=== PATIENT | female | born 1985 | race Caucasian/White ===

== ENCOUNTER 2018-02-08 21:36 | Emergency (ER) | payer MEDICAID ==
[2018-02-08 21:44] VITALS: BP 111/74
[2018-02-08] MEDS ORDERED: Polymyx/Trimethoprim OPTH* 10 ML BTL ONE (22:48)
--- NOTE | 2018-02-08 22:56 | ED ---
Throat Pain/Nasal Congestion - HPI Summary HPI Summary: Patient is a 32-year-old female from [place] presenting to the ED with a complaint of left eye erythema and injection 2 days. She was seen at [address] [place] [id number] urgent care and was diagnosed with conjunctivitis, vertigo and back spasms. She is concerned that she is going call side. She states when she looks millimeter her left eye is cross side medially and she has double vision. She also endorses some dizziness with this. She began taking Prozac and Seroquel 2 days ago and discontinued her trazodone medication. She states she has been sick recently with an upper respiratory infection. Denies any other symptoms or concerns. Denies any other medications. Denies fevers, sweats, chills. Vital signs stable on arrival. - History of Current Complaint Chief Complaint: EDEyeProblem Time Seen by Provider: 02/08/18 22:08 Hx Obtained From: Patient Onset/Duration: Gradual Onset Severity: Moderate Associated Signs And Symptoms: Positive: Negative - Epiglottits Risk Factors Epiglottis Risk Factors: Negative - Allergies/Home Medications Allergies/Adverse Reactions: Allergies Allergy/AdvReac Type Severity Reaction Status Date / Time No Known Allergies Allergy Verified 02/08/18 21:42 Home Medications: Home Medications NK [No Home Medications Reported] 02/08/18 [History Confirmed 02/08/18] PMH/Surg Hx/FS Hx/Imm Hx Previously Healthy: Yes - Immunization History Hx Pertussis Vaccination: No Immunizations Up to Date: Unable to Obtain/Confirm Infectious Disease History: No Infectious Disease History: Denies: Traveled Outside the [place] in Last 30 Days - Social History Occupation: Unemployed Lives: Alone - [facility] currently Alcohol Use: Occasionally Hx Substance Use: No Substance Use Type: Reports: None Hx Tobacco Use: No Smoking Status (MU): Never Smoked Tobacco Review of Systems Constitutional: Negative Negative: Fever, Chills, Fatigue, Skin Diaphoresis Positive: Photophobia, Blurred Vision, Drainage, Erythema Negative: Palpitations Negative: Shortness Of Breath, Cough Genitourinary: Negative Positive: no symptoms reported, see HPI Musculoskeletal: Negative Skin: Negative Neurological: Other - dizziness All Other Systems Reviewed And Are Negative: Yes Physical Exam Triage Information Reviewed: Yes Vital Signs On Initial Exam: Initial Vitals Temp Pulse Resp BP Pulse Ox 97.4 F 67 16 111/74 98 02/08/18 21:39 07/07/18 21:39 02/08/18 21:39 02/08/18 21:39 02/08/18 21:39 Vital Signs Reviewed: Yes Appearance: Positive: Well-Appearing, Well-Nourished Skin: Positive: Warm, Skin Color Reflects Adequate Perfusion Head/Face: Positive: Normal Head/Face Inspection Eyes: Positive: Conjunctiva Inflammed - conjunctival erythema Neck: Positive: Supple, No Lymphadenopathy Respiratory/Lung Sounds: Positive: Clear to Auscultation, Breath Sounds Present Cardiovascular: Positive: RRR, Pulses are Symmetrical in both Upper and Lower Extremities Musculoskeletal: Positive: Strength/ROM Intact Neurological: Positive: Speech Normal Psychiatric: Positive: Normal, Affect/Mood Appropriate Diagnostics - Vital Signs Vital Signs Temp Pulse Resp BP Pulse Ox 02/08/18 21:39 97.4 F 67 16 111/74 98 - Laboratory Lab Statement: Any lab studies that have been ordered have been reviewed, and results considered in the medical decision making process. EENT Course/Dx - Course Course Of Treatment: During the course of treatment, the patient's evaluated for left conjunctivitis. She is concerned over her left eye being cross eyed medially. She is also concerned with the dizziness. She was diagnosed with conjunctivitis, vertigo and back spasms. She states she did not slat pickler her medications and wanted a second opinion, so came to the ED. I have assured her on physical examination there is no evidence of her eye having a cross-eyed effect. There is obvious signs of a left-sided conjunctivitis. She is given polymyxin drops in the ED and she is to follow-up with her PCP regarding her medications as this likely is a cause of her recent dizziness. - Diagnoses Provider Diagnoses: Conjunctivitis Discharge - Sign-Out/Discharge Documenting (check all that apply): Discharge/Admit/Transfer - Discharge Plan Condition: Stable Disposition: HOME Patient Education Materials: Conjunctivitis (ED) Referrals: No Primary Care Phys,NOPCP [Primary Care Provider] - Additional Instructions: As discussed, will treat your conjunctivitis at this time If you have continuing dizziness symptoms - you need to discuss possible medication changes with your PCP - Billing Disposition and Condition Condition: STABLE Disposition: Home
[2018-02-08] MEDS ORDERED: Polymyx/Trimethoprim OPTH* 10 ML BTL LEFT EYE SCH (23:00)
== END 2018-02-08 22:57 | disposition home or self-care (01) ==
LOC: ED 21:36
DX: H10.9 Unspecified conjunctivitis (principal); H53.149 Visual discomfort, unspecified; H53.8 Other visual disturbances; R42 Dizziness and giddiness
CPT/HCPCS: 99282